=== PATIENT | male | born 2000 | race African-American/Black ===

== ENCOUNTER 2021-11-09 15:30 | Emergency (ER) | payer BC ==
[~2021-11-09] VITALS: Ht 195.6 cm; Wt 113.6 kg
[2021-11-09 15:38] VITALS: TEMP 99
[2021-11-09 15:54] LABS: COLLECTION METHOD CLEAN CATCH
[2021-11-09 16:01] LABS: MUCOUS Present (NOT PRESENT); PH 5 (5-8); SQUAMOUS EPITHELIAL None Seen /hpf (0-10); URINE APPEARANCE Clear (CLEAR/HAZY); URINE BACTERIA None Seen /hpf (NONE SEEN); URINE BILIRUBIN Negative (NEGATIVE); URINE BLOOD Negative (NEGATIVE); URINE COLOR Amber (YELLOW); URINE GLUCOSE Negative (NEGATIVE); URINE KETONE Negative (NEGATIVE); URINE LEUKOCYTE ESTERASE Negative (NEGATIVE); URINE NITRATE Negative (NEGATIVE); URINE PROTEIN(semi-quant) Negative (NEGATIVE); URINE UROBILINOGEN Negative (NEGATIVE)
[2021-11-09] MEDS ORDERED: DOXYCYCLINE 10100 MG PO (17:38)
[2021-11-09 17:48] VITALS: BP 142/84; PULSE 68
== END 2021-11-09 17:48 | disposition home or self-care (01) ==
LOC: COL.ER 15:30
PROVIDERS: Personal Emergency Response Attendant
DX: N34.2 Other urethritis (principal); Z88.0 Allergy status to penicillin; Z28.310 Unvaccinated for COVID-19
CPT/HCPCS: J0696

== ENCOUNTER 2023-10-10 20:45 | Observation (INO) | payer BC ==
[~2023-10-10] VITALS: Ht 195.6 cm; Wt 112.7 kg
[~2023-10-10 20:45] MED LIST: DOXYCYCLINE 10100 MG PO
[2023-10-10 21:13] LABS: BASO % 0.4 % (0.0-2.0); EOS # 0.1 K/mm3 (0.0-0.7); EOS % 1.5 % (0.0-4.0); GRAN # 3.5 K/mm3 (1.4-6.5); GRAN % 66.8 % (42.2-75.2); HEMATOCRIT 48.5 % (42.0-52.0); HEMOGLOBIN 16.4 g/dl (13.5-18.0); LYMPH # 1.3 K/mm3 (1.2-3.4); LYMPH % 24.4 % (20.0-51.0); MEAN CELL VOLUME 87 fl (80.0-100.0); MEAN CORPUSCULAR HEMOGLOBIN 29 pg (27-31); MEAN CORPUSCULAR HGB CONC 34 g/dl (33.0-37.0); MEAN PLATELET VOLUME 10.2 fl (7.4-10.4); MONO # 0.4 K/mm3 (0.1-0.6); MONO % 6.7 % (1.7-9.3); PLATELET COUNT 261 K/mm3 (130-400); REDCELL DISTRIBUTION WIDTH-CV 12.4 % (11.5-14.5)
[2023-10-10 21:24] LABS: INR 1.3 (0.8-3.0); PROTHROMBIN TIME 14.1 SECONDS (9.7-12.8)
[2023-10-10 21:26] LABS: PARTIAL THROMBOPLASTIN TIME 34.5 SECONDS (26.0-37.0)
[2023-10-10 21:31] LABS: ALBUMIN 4.1 g/dL (3.5-5.0); C-REACTIVE PROTEIN 0.17 mg/dL (0.00-0.50); CALCIUM 9.5 mg/dL (8.4-10.2); CREATININE, serum 1.18 mg/dL (0.72-1.25); POTASSIUM 3.7 mEq/L (3.5-4.5); TOTAL PROTEIN 7.7 g/dl (6.2-8.1)
[2023-10-10 21:37] LABS: TROPONIN-I 0.01 ng/mL (0.00-0.033)
[2023-10-10] MEDS ORDERED: Iohexol 300 - 100 ML VIAL IV ONE (21:56)
[2023-10-10] MEDS ORDERED: NS 100 ML IV SCH (21:57)
[2023-10-10] MEDS ORDERED: Acetaminophen 325 MG TAB PO PRN (23:15)
[2023-10-10 23:51] VITALS: BP 129/82; PULSE 61; TEMP 98.1
--- NOTE | 2023-10-11 00:03 | NUR ---
THE PATIENT ARRIVED VIA WC ACCOMPANIED BY ED STAFF. THE PATIENT IS ALERT AND ORIENTED. THE PATIENT IS UP INDEPENDENTLY IN THE ROOM WITH A STEADY GAIT. VITAL SIGNS STABLE UPON ARRIVAL. THE PATIENT WAS ORIENTED TO THE ROOM AND BED CONTROLS AND NURSE CALL LIGHT. CALL LIGHT WITHIN REACH.
[2023-10-11] MEDS ORDERED: VITAMIN B-610 MG PO (00:08)
[2023-10-11] MEDS ORDERED: ZINC CHELATE30 MG PO (00:09)
[2023-10-11] MEDS ORDERED: MAGNESIUM250 M1 PO (00:13)
[2023-10-11] MEDS ORDERED: Melatonin 3 MG TAB PO PRN (03:00)
[2023-10-11 03:56] VITALS: BP 119/76; PULSE 61; TEMP 98
[2023-10-11 06:54] LABS: BASO % 0.3 % (0.0-2.0); EOS # 0.1 K/mm3 (0.0-0.7); GRAN # 3.6 K/mm3 (1.4-6.5); GRAN % 59.9 % (42.2-75.2); HEMATOCRIT 43.7 % (42.0-52.0); HEMOGLOBIN 14.9 g/dl (13.5-18.0); LYMPH # 1.9 K/mm3 (1.2-3.4); LYMPH % 32.3 % (20.0-51.0); MEAN CELL VOLUME 85 fl (80.0-100.0); MEAN CORPUSCULAR HEMOGLOBIN 29 pg (27-31); MEAN CORPUSCULAR HGB CONC 34 g/dl (33.0-37.0); MEAN PLATELET VOLUME 10.6 fl (7.4-10.4); MONO # 0.4 K/mm3 (0.1-0.6); MONO % 6.3 % (1.7-9.3); PLATELET COUNT 234 K/mm3 (130-400); RED BLOOD COUNT 5.12 M/mm3 (4.20-5.60); REDCELL DISTRIBUTION WIDTH-CV 12.4 % (11.5-14.5)
[2023-10-11 07:13] LABS: CALCIUM 9.4 mg/dL (8.4-10.2); CREATININE, serum 1.12 mg/dL (0.72-1.25); POTASSIUM 3.8 mEq/L (3.5-4.5)
[2023-10-11 07:58] VITALS: BP 122/75; PULSE 57; TEMP 97.7
--- NOTE | 2023-10-11 08:00 | NUR ---
Patient laying in bed, A&Ox4. VSS. IV CDI. Denies pain/chest pain. Independent in the room. Call light within reach
[2023-10-11 11:12] VITALS: BP 124/80; PULSE 54; TEMP 98.1
--- NOTE | 2023-10-11 13:10 | NUR ---
Discharge paperwork reviewed with the patient. Patient verbalized an understanding to follow doctors orders. IV removed, tip intact. Gauze and coban applied. Patient ambulated independently with nursing staff. No further needs expressed
== END 2023-10-11 13:10 | disposition home or self-care (01) ==
LOC: COL.ER 20:45 → MEDICAL 22:48
PROVIDERS: Emergency Medicine; Nurse Practitioner Family; ADMIT Internal Medicine
DX: I42.2 Other hypertrophic cardiomyopathy (principal); I08.0 Rheumatic disorders of both mitral and aortic valves; K13.0 Diseases of lips; R60.9 Edema, unspecified
CPT/HCPCS: G0378; Q9967